=== PATIENT | female | born 1995 | race Caucasian/White ===

== ENCOUNTER 2022-12-17 11:29 | Emergency (ER) | payer OTHER, SELFPAY ==
--- NOTE | ~2022-12-17 | XR_ITS ---
EXAMINATION: XR KNEE, RIGHT CLINICAL INFORMATION: Right knee pain. COMPARISON: None available. TECHNIQUE: Four views of the right knee. FINDINGS: Alignment is anatomic. Joint spaces are well maintained. No displaced fracture or dislocation. No significant joint effusion. XR/XR knee RT 4V IMPRESSION: No acute abnormality.
[2022-12-17 12:20] VITALS: BP 136/82; PULSE 85; RESP 18; TEMP 36.3; O2SAT 98; BMI 23.3
--- NOTE | 2022-12-17 12:25 | ED.LOWEXIN ---
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 She denies any numbness or tingling distal. Related Data Allergies Allergy/AdvReac Type Severity Reaction Status Date / Time aspirin Allergy Facial Verified 12/17/22 12:26 Swelling codeine Allergy Facial Verified 12/17/22 12:28 Swelling Review of Systems Review of Systems: Pertinent positives and negatives as stated in HPI FOR[facility]LY [facility], [facility] Past Medical History Source: nursing notes reviewed Social History Social History Advance Directives: No Advance Directives Information Provided: Yes Physical Exam Vital Signs: Vital Signs: Last Vital Signs Temp 97.4 F 12/17/22 12:20 Pulse 85 12/17/22 12:20 Resp 18 12/17/22 12:20 BP 136/82 12/17/22 12:20 Pulse Ox 98 12/17/22 12:20 O2 Del Method Room Air 12/17/22 12:20 BMI result Body Mass Index 23.3 VITAL SIGNS: Reviewed. GENERAL: Well developed, well nourished, in no acute distress. HEAD: Normocephalic/atraumatic EYES: PERRLA, EOMI LUNGS: Normal breath sounds. No adventitious sounds or accessory muscle use. SpO2<98> CARDIOVASCULAR: Regular rate and rhythm without noted murmurs ABDOMEN: Soft, non-tender, non-distended with bowel sounds. MUSCULOSKELETAL: No tenderness, deformities, or effusions noted on gross inspection. EXTREMITIES: No cyanosis, clubbing or edema; RIGHT KNEE: No swelling, erythema, induration, deformity, no tenderness to palpation over tibial plateau, no tenderness to palpation along the MCL distribution, no tenderness to palpation at the popliteal fossa, no effusion appreciated, very mild tenderness to palpation over the LCL distribution, however provocative testing otherwise negative, pulses and sensation intact distally. SKIN: Inspection of the skin reveals no rashes NEUROLOGIC: Alert and oriented x 4. Strength and sensation to light touch were grossly intact x 4. Course Course Course Narrative: Patient complains of right knee pain after injury, in horseplay she bent her knee and believes her patella popped off to the side and that came back to its correct location and now the knee hurts Right knee x-ray ordered This is rapid medical exam in triage, pending full evaluation exam and disposition from provider in the department Right knee x-ray ordered Medical Decision Making Medical Decision Making MDM Narrative: 27-year-old female with suspected right knee strain, imaging without acute finding, given Tylenol, applied Al wrap and discharged home with instructions follow-up with her primary care provider. Differential Diagnosis Please see the discussion above Radiology Impression Radiologist Impression: My interpretation is in agreement with radiology's impression Discharge Plan Discharge Clinical Impression: Knee sprain Patient Disposition: Home, Self-Care Instructions: Knee Sprain (ED), R.I.C.E. Treatment (ED) Additional Instructions: 1. Recomiendo analg?sicos de venta jason tristin Tylenol ibuprofen para controlar el dolor. Tambi?n recomiende hielo sobre la piel no expuesta edwin 10 a 15 minutos, de 3 a 4 veces al d?a. 2. [place] un seguimiento con [place] proveedor de atenci?n primaria en los pr?ximos 1 a 2 d?as para oriana reevaluaci?n. Evite correr, saltar y bailar sobre felicia rodilla, ya que tendr? que david?rselo con calma. No dude en regresar a la austen de emergencias si los s?ntomas empeoran. 1. I recommend [id number] analgesics such as Tylenol ibuprofen for pain control. Also recommend ice to unexposed skin for 10-15 minutes, 3 to 4 times a day. 2. Please follow-up with your primary care provider next 1-2 days for re-evaluation. Please avoid all running, jumping, dancing on that knee as you will need to take it easy. Do not hesitate to return emergency room for any worsening symptoms. Referrals: Dana Bartholomew MD [Primary Care Provider] - Stand Alone Forms: Work/School Release Print Language: E[place]
[2022-12-17] MEDS: Acetaminophen 325 MG TABLET 975 MG PO (15:11)
== END 2022-12-17 15:20 | disposition home or self-care (01) ==
PROVIDERS: Emergency Provider Student in an Organized Health Care Education/Training Program; PCP Internal Medicine
DX: S83.91XA Sprain of unspecified site of right knee, initial encounter (principal); X50.0XXA Overexertion from strenuous movement or load, initial encounter; Y93.83 Activity, rough housing and horseplay; Y92.9 Unspecified place or not applicable; Y99.9 Unspecified external cause status
CPT/HCPCS: 73564; 99283